=== PATIENT | female | born 1970 | race Caucasian/White ===

== ENCOUNTER 2017-08-05 01:18 | Emergency (ER) | payer OTHER ==
--- NOTE | 2017-08-05 08:59 | CT ---
PRELIMINARY REPORT/[facility]/EMERGENTY AFTER-HOURS PROCEDURE CT Chest With Intravenous Contrast EXAM DATE/TIME: Exam ordered 08/05/2017 1:35 AM CLINICAL HISTORY: 47 years old, female; Pain and signs and symptoms; Cough; Symptoms not specified; Chest pain; Type no t specified; Patient HX: 47 yo f presents to ed from another facility with foreign body lodged in thr oat. Ems reports patient ate a chicken sandwhich this afternoon and feels that it is lodged in her th roat. Ems reports negative x-ray. Pt states pain starts from top of the chest and travels to mid ches t TECHNIQUE: Axial computed tomography images of the chest with intravenous contrast. Coronal reformatted images were created and reviewed. COMPARISON: No relevant prior studies available. FINDINGS: Lungs: Lungs are clear aside from mild subsegmental atelectasis. Pleural space: Unremarkable. No pneumothorax. No significant effusion. Heart: Unremarkable. No cardiomegaly. No significant pericardial effusion. Mediastinum: Small hiatal hernia. Esophagus is unremarkable. Bones/joints: Unremarkable. No acute fracture. No dislocation. Soft tissues: Unremarkable. Vasculature: Study not protocoled to evaluate for pulmonary embolus. No evidence of a large central P E. Lymph nodes: Unremarkable. No enlarged lymph nodes. Liver: Hepatic steatosis. IMPRESSION: No acute findings. Thank you for allowing us to participate in the care of your patient. Dictated and Authenticated by: Sterling Zuniga MD 08/05/2017 2:21 AM Central Time ([place] & [place]) FINAL REPORT CT CHEST WITH IV CONTRAST: I agree with the preliminary report given by Dr. Zuniga from [facility]. POS: [facility]
[2017-08-05] MEDS ORDERED: ISOVUE-370 76%-LOCM 1 ML ONE (14:46)
== END 2017-08-05 02:52 | disposition home or self-care (01) ==
LOC: ERS 01:18
DX: R09.89 Other specified symptoms and signs involving the circulatory and respiratory systems (principal); E78.5 Hyperlipidemia, unspecified; I10 Essential (primary) hypertension; J45.909 Unspecified asthma, uncomplicated; Z79.899 Other long term (current) drug therapy
CPT/HCPCS: 71260; 94760

== ENCOUNTER 2017-12-28 03:47 | Observation (INO) | payer SELFPAY ==
[2017-12-28] MEDS ORDERED: Mag-Al 1200 mg/1200 mg/30 ML UDCUP ONE (04:13)
[2017-12-28] MEDS ORDERED: Morphine 4 MG/ML VIAL ONE (04:13)
[2017-12-28] MEDS ORDERED: Lidocaine Viscous Sol 2% 15 ml UD Cup ONE (04:13)
[2017-12-28] MEDS ORDERED: Ondansetron HCl/PF 4 MG/2 ML Vial ONE (04:13)
[2017-12-28 04:16] LABS: #Eosinphils 0.2 thou/uL (0.0-0.7); #Lymphocytes 2.7 thou/uL (1.20-3.40); #Monocytes 0.7 thou/uL (0.11-0.59); #Neutrophils 6.2 thou/uL (1.40-6.50); %Basophils 0.5 % (0.0-1.0); %Eosinophils 1.7 % (0.0-10.0); %Lymphocytes 27.3 % (21.0-51.0); %Monocytes 7.1 % (0.0-10.0); %Neutrophils 63.4 % (42.0-75.0); Hemoglobin 14.4 g/dL (12.0-16.0); Mean Corpuscular HGB CONC 33.6 g/dL (32.0-36.0); Mean Corpuscular Hemoglobin 29.9 pg (27.0-31.0); Mean Corpuscular Volume 88.9 fL (78.0-98.0); Mean Platelet Volume 8.3 fL (7.4-10.4); Platelet Count 268 thou/uL (130-400); RBC Distribution Width 12.2 % (11.5-14.5); Red Blood Cell (RBC) Count 4.83 mill/uL (4.20-5.40); White Blood Cell (WBC) Count 9.7 thou/uL (4.8-10.8)
[2017-12-28 04:39] LABS: ALT (SGPT) 66 U/L (8-55); AST (SGOT) 94 U/L (5-34); Alkaline Phosphatase 96 U/L (40-150); Anion Gap 14 mmol/L (10-20); BUN (Urea Nitrogen) 11 mg/dL (7.0-18.7); CK (CPK) 74 U/L (29-168); Calc. Creatinine Clearance 0 mL/min (70-130); Calcium 9.8 mg/dL (7.8-10.44); Carbon Dioxide 21 mmol/L (22-29); Chloride 109 mmol/L (98-107); Estimated GFR-MDRD 78; Globulin 2.5 g/dL (2.4-3.5); Glucose 100 mg/dL (70-105); Lipase 44 U/L (8-78); Potassium 3.6 mmol/L (3.5-5.1); Protein, Total 6.5 g/dL (6.0-8.3); Sodium 140 mmol/L (136-145)
[2017-12-28 04:43] LABS: Troponin I Less than 0.010 ng/mL (< 0.028)
[2017-12-28] MEDS ORDERED: Ondansetron HCl/PF 4 MG/2 ML Vial IVP PRN (07:21)
[2017-12-28] MEDS ORDERED: Acetaminophen 325 MG TAB PO PRN ×2 (07:21→09:28)
[2017-12-28] MEDS ORDERED: Ondansetron ODT 4 MG TAB SL PRN (07:21)
[2017-12-28 07:31] LABS: Troponin I Less than 0.010 ng/mL (< 0.028)
[2017-12-28 07:54] VITALS: BMI 31.9
--- NOTE | 2017-12-28 08:36 | ULT ---
RIGHT UPPER QUADRANT ULTRASOUND: Date: 12/28/17 PROVIDED CLINICAL HISTORY: Elevated LFTs. FINDINGS: Visualized portions of the pancreas and IVC appear normal. Liver demonstrates increased echogenicity compatible with fatty infiltration. No evidence for mass or intrahepatic biliary ductal dilatation. T he common duct is not dilated. The gallbladder demonstrates mobile shadowing echogenic foci compatibl e with gallstones. In addition, there is a nonmobile echogenic focus measuring about 7.0 mm adherent to the gallbladder wall compatible with a gallbladder polyp. Gallbladder wall is upper limits of norm al in thickness. There is no pericholecystic fluid or sonographic Rubi's sign. The right kidney dem onstrates no hydronephrosis or mass. IMPRESSION: 1. Fatty infiltration of the liver. 2. Cholelithiasis without definite acute findings related to the gallbladder. 3. 7.0 mm gallbladder wall polyp. Sonographic follow-up in 6 months is recommended. CODE T. POS: [facility]
--- NOTE | 2017-12-28 08:57 | RAD ---
PORTABLE CHEST: Date: 12/28/17 PROVIDED CLINICAL HISTORY: Chest pain. FINDINGS: Comparison with 09/06/14. Cardiac and mediastinal silhouette is unchanged in appearance. There is patchy air space disease pres ent at the left lung base. No pleural fluid or pneumothorax apparent. IMPRESSION: Left basilar air space disease. Correlate with concerns for pneumonia. Follow-up is recommended. POS: [facility]
[2017-12-28] MEDS ORDERED: PROVENTIL INHALER 6.7 G (200 INHALATIONS) INH PRN (09:28)
[2017-12-28] MEDS ORDERED: Nitroglycerin 0.4 MG TAB (25 Tab Bottle) PO PRN (09:28)
[2017-12-28] MEDS ORDERED: Guaifenesin DM 100-10/5 ML UDCUP PO PRN (09:28)
[2017-12-28] MEDS ORDERED: Sodium Chloride 0.9% 1,000 ML IV SCH (09:30)
[2017-12-28 10:09] LABS: Cardiac Risk 3.4 (Less than 4.5)
[2017-12-28] MEDS ORDERED: Aspirin 325 MG TAB PO SCH (10:15)
[2017-12-28 10:33] LABS: Troponin I Less than 0.010 ng/mL (< 0.028)
[2017-12-28] MEDS ORDERED: Nystatin 500,000 UNITS/5 ML UDCUP SSP SCH (13:00)
--- NOTE | 2017-12-28 13:45 | HP ---
REASON FOR ADMISSION: Chest pain. HISTORY OF PRESENTING ILLNESS: The patient gives history of waking up around 2 in the morning with retrosternal chest pain. This was like someone squeezing on her and releasing and says the intensity was around 7/10. She tried to walk it off and lay down as well with no relief. The patient finally summoned EMS and was given 3 tablets of aspirin. Ten minutes later, the pain eased up. She has not had any prior cardiac workup. She has known history of esophageal stricture and has had 3 prior dilatations done in [place] via her fire eater. No complaints of cough, fever or expectoration. No complaints of palpitations, PND or orthopnea. PAST MEDICAL AND SURGICAL HISTORY: History of asthma, which is stable at present. Prior history of esophageal stricture with three dilatations done by her fire eater in [place], hysterectomy, hemorrhoidectomy and hiatal hernia repair. CURRENT MEDICATIONS: Lansoprazole 30 mg twice daily, Breo Ellipta at bedtime, albuterol inhaler q.6 hourly p.r.n., Nystatin swish and swallow for oral candidiasis. ALLERGIES: AMOXICILLIN, CODEINE, PENICILLIN, STEROIDS, SULFA. PERSONAL HISTORY: Quit smoking more than 10 years ago, does not abuse alcohol or drugs. Lives with her . FAMILY HISTORY: Mother is healthy. Father had a heart transplant done 2 years ago at [facility] for recurrent MO, prior CABG as well. CODE STATUS: FULL. 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 REVIEW OF SYSTEMS: The following complete review of systems was negative, unless otherwise mentioned in the HPI or below: Constitutional: Weight loss or gain, ability to conduct usual activities. Skin: Rash, itching. Eyes: Double vision, pain. ENT/Mouth: Nose bleeding, neck stiffness, pain, tenderness. Cardiovascular: Palpitations, dyspnea on exertion, orthopnea. Respiratory: Shortness of breath, wheezing, cough, hemoptysis, fever or night sweats. Gastrointestinal: Poor appetite, abdominal pain, heartburn, nausea, vomiting, constipation, or diarrhea. Genitourinary: Urgency, frequency, dysuria, nocturia. Musculoskeletal: Pain, swelling. Neurologic/Psychiatric: Anxiety, depression. Allergy/Immunologic: Skin rash, bleeding tendency. PHYSICAL EXAMINATION: GENERAL: The patient is a 47-year-old female who is currently not in any acute distress. VITAL SIGNS: Blood pressure 124/74, pulse 76 per minute, respiratory rate 16 per minute, saturating 97% on room air and temperature is 98.4 degrees Fahrenheit. NECK: Supple, no elevated JVD. EYES: Extraocular muscles intact. Pupils reacting to light. ORAL CAVITY: Mucous membranes are moist. No exudates or congestion. CARDIOVASCULAR SYSTEM: S1, S2 heard. Regular rhythm. RESPIRATORY SYSTEM: Air entry 2+ bilateral. No rales or rhonchi. ABDOMEN: Soft, bowel sounds heard. No tenderness, rigidity or guarding. EXTREMITIES: No peripheral edema or calf tenderness. VASCULAR SYSTEM: Peripheral pulses 2+ bilateral, no ischemic ulcerations or gangrene. CENTRAL NERVOUS SYSTEM: No gross focal deficits noted. Patient is alert, awake , and oriented well. PSYCHIATRIC SYSTEM: The patient's mood is euthymic. No hallucinations or delusions. LABORATORY DATA AND IMAGING DATA: White count of 9.7, hemoglobin and hematocrit 14 and 43, platelet count 268 with 63% neutrophils. Serum bicarbonate 21, BUN 11, creatinine 0.7, glucose 100, AST 94, ALT 66, total bilirubin 1.03. Three sets of troponin are negative. Albumin is 4.0, lipase is 44, total cholesterol 205, triglycerides 60, LDL 133, HDL 60. Chest x-ray done shows no acute infiltrate. Abdominal ultrasound done shows findings of fatty liver. There is cholelithiasis without acute cholecystitis. There was also 7 mm gallbladder wall polyp. EKG done shows normal sinus rhythm at 71 beats per minute with no gross ST-T wave changes. CLINICAL IMPRESSION AND PLAN: The patient has had 3 sets of troponin, which was negative and is currently awaiting nuclear stress test. She has history of esophageal stricture and has had prior dilatations done by her fire eater in [place]. If her nuclear stress test is normal patient likely will go home. She will have her usual diet and if she tolerates it, we will ask her to follow up with her fire eater in [place]. She also has mild dyslipidemia and we will place her on Lipitor 20 mg a day. Please note, this will be a same day admit discharge summary if patient leaves the hospital today. Addendum: stress test showed no reversible ischemia and had normal wall motion. Discharge patient home. Please note this is a same day observation admit and discharge summary. MICHELE
[2017-12-28 15:56] VITALS: BP 127/61; TEMP 97.6
--- NOTE | 2017-12-28 16:18 | NM ---
NUCLEAR MEDICINE CARDIAC STRESS TEST WITH EJECTION FRACTION: HISTORY: Chest pain. COMPARISON: None. TECHNIQUE: Stress and rest performed with the intravenous administration of 30 and 10 millicuries of technetium 99m sestamibi, respectively. FINDINGS: No scar or ischemia. Adequate left ventricular uptake of radiotracer. Normal wall motion. Ejection fraction calculated at 59%. IMPRESSION: Normal examination. POS: [facility]
[2017-12-28] MEDS ORDERED: Mometasone/Formoterol 120 PUFF INHALER INH SCH (18:30)
[2017-12-28] MEDS ORDERED: Atorvastatin Calcium 20 MG TAB PO SCH (21:00)
[2017-12-28] MEDS ORDERED: Famotidine 20 MG TAB PO SCH (21:00)
[2017-12-29] MEDS ORDERED: Aspirin 325 MG TAB PO SCH (09:00)
== END 2017-12-28 17:15 | disposition home or self-care (01) ==
LOC: ERS 03:47 → 2SW 06:49
PROVIDERS: ADMIT Hospitalist; ATTEND Hospitalist
DX: R07.9 Chest pain, unspecified (principal); J45.909 Unspecified asthma, uncomplicated; Z88.0 Allergy status to penicillin; Z88.2 Allergy status to sulfonamides; Z88.5 Allergy status to narcotic agent; Z87.891 Personal history of nicotine dependence; Z79.899 Other long term (current) drug therapy
CPT/HCPCS: 36415; 71045; 76705; 78452; 80053; 80061; 82553; 83690; 84484; 85025; 85379; 87040; 93005; 93017; 96361; 96374; 96375; A9500; G0378; G8996-GN-CH; G8997-GN-CH; J2270; J2405

== ENCOUNTER 2017-12-29 10:27 | Outpatient (CLI) | payer BC, SELFPAY | END 2017-12-29 10:28 | disposition home or self-care (01) | LOC: BICMAMMO 10:27 → EDSTATUS 10:30 | PROVIDERS: ATTEND Family Medicine | DX: N64.4 Mastodynia (principal); N64.89 Other specified disorders of breast | CPT/HCPCS: 77066; G0279 ==

== ENCOUNTER 2023-06-26 11:56 | Outpatient (CLI) | payer BC | END 2023-06-26 11:57 | disposition home or self-care (01) | LOC: BICMAMMO 11:56 | PROVIDERS: ATTEND Family Medicine | DX: Z12.31 Encounter for screening mammogram for malignant neoplasm of breast (principal); Z80.3 Family history of malignant neoplasm of breast | CPT/HCPCS: 77063; 77067 ==